=== PATIENT | male | born 1985 | race Caucasian/White ===

== ENCOUNTER 2017-01-15 15:03 | Emergency (ER) | payer OTHER ==
--- NOTE | 2017-01-15 15:37 | ED ORDER SUMMARY ---
..... Patient: SAMANTHA NAYLOR OrderSheet [facility] VisitID: [id number] [address] [place] [address] 31y, M Registration Date/Time: 01/15/2017 ORDER SHEET Weight: 86.1 kg (stated) Allergies: No Known Drug Allergy GENERAL ORDERS: - (LIST OF DENTAL RESOURCES PLEASE) (15:35 01/15/2017 Chris DEJESUS) (15:38 [place] [address]) MEDICATION ORDERS: IV FLUIDS: ORDER SHEET NOTES: [Electronically signed by Tori Beaver R.N. (15:57 01/15/2017)] [Electronically signed by Williams De Luna MD (12:34 01/16/2017)] [Electronically locked/signed by Tori Beaver R.N. (15:57 01/15/2017)]
--- NOTE | 2017-01-15 15:37 | ED CLINICAL REPORT ---
Clinical Report - Physicians/Mid Levels [facility] [address] [place] [address] 01/15/2017 15:06 Patient: SAMANTHA NAYLOR Time Seen: 15:11; initial patient contact. Arrived- By private vehicle. Historian- patient. HISTORY OF PRESENT ILLNESS Chief Complaint: DENTAL PAIN. This started yesterday and is still present and worsening. It was gradual in onset. The patient has had severe toothache (right lower molar). No swollen jaw or face. He has had jaw pain. Similar symptoms previously: Several times. REVIEW OF SYSTEMS No fever. He has had a cough. He has had mild difficulty breathing (wheezing). PAST HISTORY PCP: [facility] PROBLEMS: Hypertension. Asthma. Bronchitis. SOCIAL HISTORY Current every day smoker. ADDITIONAL NOTES The nursing notes have been reviewed. PHYSICAL EXAM Vital Signs: 01/15/2017 15:44 BP: 125/90. HR: 87. RR: 16. O2 saturation: 100%. Temp: 97.7 F. Pain level now: 10/26. 01/15/2017 15:13 BP: 134/84. HR: 104. RR: 18. O2 saturation: 100%. Temp: 97.7 F. Appearance: Alert. Patient in moderate distress. ENT: Severe, extensive dental decay (lower right first molar and second molar). Pharynx normal. Uvula midline. Neck: Trachea midline. No adenopathy. Respiratory: No respiratory distress. Expiratory moderate bilateral wheezes present. PROGRESS AND PROCEDURES Dental Nerve Block: Inferior Alveolar Block. Procedure performed on the right side. Landmarks were identified. Topical anesthetic applied. Total volume of 2 mL 0.5% Marcaine infiltrated using a 27-gauge needle. No complications encountered. Good anesthesia achieved. Procedure repeated on opposite side. Course of Care: 15:36 01/15/17. Pain was 9 after block 11/26. Disposition: Discharged. Condition: good. CLINICAL IMPRESSION Dental pain. INSTRUCTIONS (BECOME A NON SMOKER KEEP YOUR [facility]). Prescription Medications: Hydrocodone/APAP 5mg / 325mg: every 4 hours as needed for pain. Dispense fifteen (15). No refill. Amoxicillin 500 mg tablets: Take 1 orally every 8 hours for 10 days. Dispense thirty (30). No refills. (Electronically signed by Williams De Luna MD 01/16/2017 12:34)
--- NOTE | 2017-01-15 15:37 | ED CLINICAL REPORT ---
Clinical Report - Physicians/Mid Levels [facility] [address] [place] [address] 01/15/2017 15:06 Patient: SAMANTHA NAYLOR Time Seen: 15:11; initial patient contact. Arrived- By private vehicle. Historian- patient. HISTORY OF PRESENT ILLNESS Chief Complaint: DENTAL PAIN. This started yesterday and is still present and worsening. It was gradual in onset. The patient has had severe toothache (right lower molar). No swollen jaw or face. He has had jaw pain. Similar symptoms previously: Several times. REVIEW OF SYSTEMS No fever. He has had a cough. He has had mild difficulty breathing (wheezing). PA[facility] HISTORY [facility] PROBLEMS: Hypertension. Asthma. Bronchitis. SOCIAL HISTORY Current every day smoker. ADDITIONAL NOTES The nursing notes have been reviewed. PHYSICAL EXAM Vital Signs: 01/15/2017 15:44 BP: 125/90. HR: 87. RR: 16. O2 saturation: 100%. Temp: 97.7 F. Pain level now: 10/26. 01/15/2017 15:13 BP: 134/84. HR: 104. RR: 18. O2 saturation: 100%. Temp: 97.7 F. Appearance: Alert. Patient in moderate distress. ENT: Severe, extensive dental decay (lower right first molar and second molar). Pharynx normal. Uvula midline. Neck: Trachea midline. No adenopathy. Respiratory: No respiratory distress. Expiratory moderate bilateral wheezes present. PROGRESS AND PROCEDURES Dental Nerve Block: Inferior Alveolar Block. Procedure performed on the right side. Landmarks were identified. Topical anesthetic applied. Total volume of 2 mL 0.5% Marcaine infiltrated using a 27-gauge needle. No complications encountered. Good anesthesia achieved. Procedure repeated on opposite side. Course of Care: 15:36 01/15/17. Pain was 9 after block 11/26. Disposition: Discharged. Condition: good. CLINICAL IMPRESSION Dental pain. INSTRUCTIONS (BECOME A NON SMOKER KEEP YOUR [facility] DENTAL APPOINTMENT). Prescription Medications: Hydrocodone/APAP 5mg / 325mg: every 4 hours as needed for pain. Dispense fifteen (15). No refill. Amoxicillin 500 mg tablets: Take 1 orally every 8 hours for 10 days. Dispense thirty (30). No refills. (Electronically signed by Williams De Luna MD 01/16/2017 12:34)
--- NOTE | 2017-01-15 15:37 | ED ORDER SUMMARY ---
..... Patient: SAMANTHA NAYLOR OrderSheet [facility] VisitID: [id number] [address] [place] [address] 31y, M Registration Date/Time: 01/15/2017 ORDER SHEET Weight: 86.1 kg (stated) Allergies: No Known Drug Allergy GENERAL ORDERS: - (LIST OF DENTAL RESOURCES PLEASE) (15:35 01/15/2017 Chris DEJESUS) (15:38 [place] [address]) MEDICATION ORDERS: IV FLUIDS: ORDER SHEET NOTES: [Electronically signed by Tori Beaver R.N. (15:57 01/15/2017)] [Electronically signed by Williams De Luna MD (12:34 01/16/2017)] [Electronically locked/signed by Tori Beaver R.N. (15:57 01/15/2017)]
--- NOTE | 2017-01-15 15:37 | ED NURSING NOTES ---
Clinical Report - Nurses [facility] [address] [place] [address] 01/15/2017 15:06 [id number] Triage time 15:13. Acuity: LEVEL 5. Chief Complaint: TOOTHACHE. Alert. No acute distress. ISATU COMA SCORE: [place] Coma Scale: 15- eyes open spontaneously (4); best verbal response- oriented x 4 (5); best motor response- obeys commands (6). --15:18 Kelley Núñez R.N. 15:13 01/15/17. BP: 134/84. HR: 104. RR: 18. O2 saturation: 100% on room air. Temp: 97.7 F (oral). --15:18 Kelley Núñez R.N. Weight: 86.1 kg stated. Height/Length: 74 inches Per Patient. BMI: 24.4. --15:15 Kelley Núñez R.N. Medications Zpak , , for respiratory infection (started 4 days ago). --15:14 Kelley Núñez R.N. Ibuprofen Oral. ProAir HFA Inhalation. --15:14 Kelley Núñez R.N. Medication/allergy information source: the patient. --15:18 Kelley Núñez R.N. Allergies No Known Drug Allergy. --15:14 Kelley Núñez R.N. History Arrived by private vehicle. Historian: patient. Unaccompanied. Primary physician (Kike). This started last night. SOCIAL HX: Heavy tobacco smoker- less than 1 pack per day. No alcohol use or drug use. FALL RISK ASSESSMENT: Fall risk assessment completed. No fall risk identified. FUNCTIONAL ASSESSMENT: Functional assessment: no impairments noted. LEARNING NEEDS ASSESSMENT: The learning needs assessment revealed no barriers. --15:18 Kelley Núñez R.N. PROBLEMS: Hypertension. Asthma. Bronchitis. --15:15 Kelley Núñez R.N. ADDITIONAL SURGERIES: no known surgeries. Assessment GENERAL / NEURO / PSYCH: Alert. Oriented X 4. Appears in no acute distress. Patient appears calm and cooperative. RESPIRATORY: Respirations not labored. SKIN: Skin is warm and dry. --15:18 Kelley Núñez R.N. Interventions ID band on patient. To treatment room. --15:18 Kelley Núñez R.N. PHYSICAL ASSESSMENT 15:23 01/15/17. Ambulatory to room. GENERAL / NEURO / PSYCH: Alert. Oriented X 4. Appears in no acute distress. RESPIRATORY: Respirations not labored. SKIN: Skin is warm and dry. --15:23 Kelley Núñez R.N. NURSING PROGRESS NOTES 15:23 01/15/17. Call light placed in reach. Side rails up x 1. Bed placed in lowest position. Brakes of bed on. --15:23 Kelley Núñez R.N. DISPOSITION / DISCHARGE Departure time: 15:46. Condition at departure: improved. The goals identified in the patient's plan of care were met. No learning barriers present. Discharge instructions provided and reviewed with the patient. Patient verbalized understanding. Written instructions provided in Yi. The patient was discharged home. He left the Emergency Department ambulatory and via private vehicle. Patient driving. FALL RISK ASSESSMENT: Fall risk assessment completed. No fall risk identified. --15:47 Tori Beaver R.N. 15:43 01/15/17. BP: 125/90. HR: 87. RR: 16. O2 saturation: 100%. Temp: 97.7 F. Pain level now: 10/26. --15:47 Tori Beaver R.N. Locked/Released at 01/15/2017 15:57 by Tori Beaver R.N.
--- NOTE | 2017-01-16 12:34 | ED MAR SUMMARY ---
..... Medication Administration Record [facility] [address] [place] [id number] Patient: SAMANTHA NAYLOR Visit ID: [id number] 31y, M Weight: 86.1 kg Height/Length: 74 in BMI: 24.4 ALLERGIES: No Known Drug Allergy
--- NOTE | 2017-01-16 12:34 | ED MED RECONCILIATION SUMMARY ---
Patient: SAMANTHA NAYLOR Medication Reconciliation Report [facility] VisitID: [id number] [address] [place] [address] 31y, M Registration Date/Time: 01/15/2017 Weight: 86.1 kg Height/Length: 74 in. BMI: 24.4 ALLERGIES: No Known Drug Allergy The patient's Home Medications are listed below: THE FOLLOWING MEDICATIONS NEED TO BE RECONCILED: Ibuprofen Oral ProAir HFA Inhalation Zpak , for respiratory infection, started 4 days ago The source(s) of the original Home Medication information: patient The following Medications were given to the patient in the Emergency Department: None. The following Medications were prescribed to the patient: Hydrocodone/APAP 5mg / 325mg: every 4 hours as needed for pain. Dispense fifteen (15). No refill. -- Williams De Luna MD Amoxicillin 500 mg tablets: Take 1 orally every 8 hours for 10 days. Dispense thirty (30). No refills. -- Williams De Luna MD
--- NOTE | 2017-01-16 12:34 | ED DISCHARGE INSTRUCTIONS ---
Patient: SAMANTHA NAYLOR General Instructions [facility] VisitID: [id number] [place] [address] 31y, M Registration Date/Time: 01/15/2017 Dental pain. INSTRUCTIONS (BECOME A NON SMOKER KEEP YOUR [facility] DENTAL APPOINTMENT). Prescription Medications: Hydrocodone/APAP 5mg / 325mg: every 4 hours as needed for pain. Dispense fifteen (15). No refill. Amoxicillin 500 mg tablets: Take 1 orally every 8 hours for 10 days. Dispense thirty (30). No refills. ADDITIONAL INFORMATION Dental Pain A crack or cavity in the tooth, which exposes the sensitive inner area of the tooth can cause tooth pain. An infection in the gum or the root of the tooth can cause pain and swelling. The pain is often made worse by drinking hot or cold fluids, or biting on hard foods. Pain may spread from the tooth to the ear or jaw on the same side. Home Care: Avoid hot and cold foods and liquids since your tooth may be sensitive to temperature changes. If your tooth is chipped or cracked, or if there is a large open cavity, apply OIL OF CLOVES (available [id number] in drug stores) directly to the tooth to reduce pain. Some pharmacies carry an punl-wxs-kmjyjwn "toothache kit." This contains a paste, which can be applied over the exposed tooth to decrease sensitivity. A cold pack on your jaw over the sore area may help reduce pain. You may use acetaminophen (Tylenol) or ibuprofen (Motrin, Advil) to control pain, unless another medicine was prescribed. [ NOTE: If you have chronic liver or kidney disease or ever had a stomach ulcer or GI bleeding, talk with your doctor before using these medicines.] If you have signs of an infection, an antibiotic will be given. Take it as directed. Follow-Up as directed with a dentist. Your pain may go away with the treatment given. However, only a dentist can fully evaluate and treat the cause and prevent the pain from coming back again. TOOTHACHE IS A SIGN OF DISEASE IN YOUR TOOTH AND SHOULD BE EXAMINED AND TREATED BY A DENTIST. Get Prompt Medical Attention if any of the following occur: Your face becomes swollen or red Pain worsens or spreads to the neck Fever over 100.4 F (38.0 C) Unusual drowsiness; headache or stiff neck; weakness or fainting Pus drains from the tooth Difficulty swallowing or breathing Hydrocodone Bitartrate, Acetaminophen Oral tablet What is this medicine? ACETAMINOPHEN; HYDROCODONE (a set a PRIYA marjan fen; verna droe KOE done) is a pain reliever. It is used to treat mild to moderate pain. How should I use this medicine? Take this medicine by mouth. Swallow it with a full glass of water. Follow the directions on the prescription label. If the medicine upsets your stomach, take the medicine with food or milk. Do not take more than you are told to take. Talk to your library assistant regarding the use of this medicine in children. This medicine is not approved for use in children. What side effects may I notice from receiving this medicine? Side effects that you should report to your doctor or health wild animal caretaker as soon as possible: allergic reactions like skin rash, itching or hives, swelling of the face, lips, or tongue breathing problems confusion feeling faint or lightheaded, falls stomach pain yellowing of the eyes or skin Side effects that usually do not require medical attention (report to your doctor or health wild animal caretaker if they continue or are bothersome): nausea, vomiting stomach upset What may interact with this medicine? alcohol antihistamines isoniazid medicines for depression, anxiety, or psychotic disturbances medicines for sleep muscle relaxants naltrexone narcotic medicines (opiates) for pain phenobarbital ritonavir tramadol What if I miss a dose? If you miss a dose, take it as soon as you can. If it is almost time for your next dose, take only that dose. Do not take double or extra doses. Where should I keep my medicine? Keep out of the reach of children. This medicine can be abused. Keep your medicine in a safe place to protect it from theft. Do not share this medicine with anyone. Selling or giving away this medicine is dangerous and against the law. Store at room temperature between 15 and 30 degrees C (59 and 86 degrees F). Protect from light. Keep container tightly closed. Throw away any unused medicine after the expiration date. Discard unused medicine and used packaging carefully. Pets and children can be harmed if they find used or lost packages. What should I tell my health care provider before I take this medicine? They need to know if you have any of these conditions: brain tumor Crohn's disease, inflammatory bowel disease, or ulcerative colitis drink more than 3 alcohol-containing drinks per day drug abuse or addiction head injury heart or circulation problems kidney disease or problems going to the bathroom liver disease lung disease, asthma, or breathing problems an unusual or allergic reaction to acetaminophen, hydrocodone, other opioid analgesics, other medicines, foods, dyes, or preservatives or trying to get breast-feeding What should I watch for while using this medicine? Tell your doctor or health wild animal caretaker if your pain does not go away, if it gets worse, or if you have new or a different type of pain. You may develop tolerance to the medicine. Tolerance means that you will need a higher dose of the medicine for pain relief. Tolerance is normal and is expected if you take the medicine for a long time. Do not suddenly stop taking your medicine because you may develop a severe reaction. Your body becomes used to the medicine. This does NOT mean you are addicted. Addiction is a behavior related to getting and using a drug for a non-medical reason. If you have pain, you have a medical reason to take pain medicine. Your doctor will tell you how much medicine to take. If your doctor wants you to stop the medicine, the dose will be slowly lowered over time to avoid any side effects. You may get drowsy or dizzy when you first start taking the medicine or change doses. Do not drive, use machinery, or do anything that may be dangerous until you know how the medicine affects you. Stand or sit up slowly. There are different types of narcotic medicines (opiates) for pain. If you take more than one type at the same time, you may have more side effects. Give your health care provider a list of all medicines you use. Your doctor will tell you how much medicine to take. Do not take more medicine than directed. Call emergency for help if you have problems breathing. The medicine will cause constipation. Try to have a bowel movement at least every 2 to 3 days. If you do not have a bowel movement for 3 days, call your doctor or health wild animal caretaker. Too much acetaminophen can be very dangerous. Do not take Tylenol (acetaminophen) or medicines that contain acetaminophen with this medicine. Many non-prescription medicines contain acetaminophen. Always read the labels carefully. You have been given the following additional information: Dental Pain Hydrocodone Bitartrate, Acetaminophen Oral tablet (Electronically signed by Williams De Luna MD 01/16/2017 12:34)
--- NOTE | 2017-01-16 12:34 | ED MAR SUMMARY ---
..... Medication Administration Record [facility] [address] [place] [id number] Patient: SAMANTHA NAYLOR Visit ID: [id number] 31y, M Weight: 86.1 kg Height/Length: 74 in BMI: 24.4 ALLERGIES: No Known Drug Allergy
--- NOTE | 2017-01-16 12:34 | ED DISCHARGE INSTRUCTIONS ---
Patient: SAMANTHA NAYLOR General Instructions [facility] VisitID: [id number] [place] [address] 31y, M Registration Date/Time: 01/15/2017 Dental pain. INSTRUCTIONS (BECOME A NON SMOKER [facility]). Prescription Medications: Hydrocodone/APAP 5mg / 325mg: every 4 hours as needed for pain. Dispense fifteen (15). No refill. Amoxicillin 500 mg tablets: Take 1 orally every 8 hours for 10 days. Dispense thirty (30). No refills. ADDITIONAL INFORMATION Dental Pain A crack or cavity in the tooth, which exposes the sensitive inner area of the tooth can cause tooth pain. An infection in the gum or the root of the tooth can cause pain and swelling. The pain is often made worse by drinking hot or cold fluids, or biting on hard foods. Pain may spread from the tooth to the ear or jaw on the same side. Home Care: Avoid hot and cold foods and liquids since your tooth may be sensitive to temperature changes. If your tooth is chipped or cracked, or if there is a large open cavity, apply OIL OF CLOVES (available blbt-mmd-muxrewy in drug stores) directly to the tooth to reduce pain. Some pharmacies carry an aqaw-yal-jplyopc "toothache kit." This contains a paste, which can be applied over the exposed tooth to decrease sensitivity. A cold pack on your jaw over the sore area may help reduce pain. You may use acetaminophen (Tylenol) or ibuprofen (Motrin, Advil) to control pain, unless another medicine was prescribed. [ NOTE: If you have chronic liver or kidney disease or ever had a stomach ulcer or GI bleeding, talk with your doctor before using these medicines.] If you have signs of an infection, an antibiotic will be given. Take it as directed. Follow-Up as directed with a dentist. Your pain may go away with the treatment given. However, only a dentist can fully evaluate and treat the cause and prevent the pain from coming back again. TOOTHACHE IS A SIGN OF DISEASE IN YOUR TOOTH AND SHOULD BE EXAMINED AND TREATED BY A DENTIST. Get Prompt Medical Attention if any of the following occur: Your face becomes swollen or red Pain worsens or spreads to the neck Fever over 100.4 F (38.0 C) Unusual drowsiness; headache or stiff neck; weakness or fainting Pus drains from the tooth Difficulty swallowing or breathing Hydrocodone Bitartrate, Acetaminophen Oral tablet What is this medicine? ACETAMINOPHEN; HYDROCODONE (a set a PRIYA marjan fen; verna droe KOE done) is a pain reliever. It is used to treat mild to moderate pain. How should I use this medicine? Take this medicine by mouth. Swallow it with a full glass of water. Follow the directions on the prescription label. If the medicine upsets your stomach, take the medicine with food or milk. Do not take more than you are told to take. Talk to your event decorator and designer regarding the use of this medicine in children. This medicine is not approved for use in children. What side effects may I notice from receiving this medicine? Side effects that you should report to your doctor or health md do resident urgent care as soon as possible: allergic reactions like skin rash, itching or hives, swelling of the face, lips, or tongue breathing problems confusion feeling faint or lightheaded, falls stomach pain yellowing of the eyes or skin Side effects that usually do not require medical attention (report to your doctor or health md do resident urgent care if they continue or are bothersome): nausea, vomiting stomach upset What may interact with this medicine? alcohol antihistamines isoniazid medicines for depression, anxiety, or psychotic disturbances medicines for sleep muscle relaxants naltrexone narcotic medicines (opiates) for pain phenobarbital ritonavir tramadol What if I miss a dose? If you miss a dose, take it as soon as you can. If it is almost time for your next dose, take only that dose. Do not take double or extra doses. Where should I keep my medicine? Keep out of the reach of children. This medicine can be abused. Keep your medicine in a safe place to protect it from theft. Do not share this medicine with anyone. Selling or giving away this medicine is dangerous and against the law. Store at room temperature between 15 and 30 degrees C (59 and 86 degrees F). Protect from light. Keep container tightly closed. Throw away any unused medicine after the expiration date. Discard unused medicine and used packaging carefully. Pets and children can be harmed if they find used or lost packages. What should I tell my health care provider before I take this medicine? They need to know if you have any of these conditions: brain tumor Crohn's disease, inflammatory bowel disease, or ulcerative colitis drink more than 3 alcohol-containing drinks per day drug abuse or addiction head injury heart or circulation problems kidney disease or problems going to the bathroom liver disease lung disease, asthma, or breathing problems an unusual or allergic reaction to acetaminophen, hydrocodone, other opioid analgesics, other medicines, foods, dyes, or preservatives or trying to get breast-feeding What should I watch for while using this medicine? Tell your doctor or health md do resident urgent care if your pain does not go away, if it gets worse, or if you have new or a different type of pain. You may develop tolerance to the medicine. Tolerance means that you will need a higher dose of the medicine for pain relief. Tolerance is normal and is expected if you take the medicine for a long time. Do not suddenly stop taking your medicine because you may develop a severe reaction. Your body becomes used to the medicine. This does NOT mean you are addicted. Addiction is a behavior related to getting and using a drug for a non-medical reason. If you have pain, you have a medical reason to take pain medicine. Your doctor will tell you how much medicine to take. If your doctor wants you to stop the medicine, the dose will be slowly lowered over time to avoid any side effects. You may get drowsy or dizzy when you first start taking the medicine or change doses. Do not drive, use machinery, or do anything that may be dangerous until you know how the medicine affects you. Stand or sit up slowly. There are different types of narcotic medicines (opiates) for pain. If you take more than one type at the same time, you may have more side effects. Give your health care provider a list of all medicines you use. Your doctor will tell you how much medicine to take. Do not take more medicine than directed. Call emergency for help if you have problems breathing. The medicine will cause constipation. Try to have a bowel movement at least every 2 to 3 days. If you do not have a bowel movement for 3 days, call your doctor or health md do resident urgent care. Too much acetaminophen can be very dangerous. Do not take Tylenol (acetaminophen) or medicines that contain acetaminophen with this medicine. Many non-prescription medicines contain acetaminophen. Always read the labels carefully. You have been given the following additional information: Dental Pain Hydrocodone Bitartrate, Acetaminophen Oral tablet (Electronically signed by Williams De Luna MD 01/16/2017 12:34)
--- NOTE | 2017-01-16 12:34 | ED MED RECONCILIATION SUMMARY ---
Patient: SAMANTHA NAYLOR Medication Reconciliation Report [facility] VisitID: [id number] [address] [place] [address] 31y, M Registration Date/Time: 01/15/2017 Weight: 86.1 kg Height/Length: 74 in. BMI: 24.4 ALLERGIES: No Known Drug Allergy The patient's Home Medications are listed below: THE FOLLOWING MEDICATIONS NEED TO BE RECONCILED: Ibuprofen Oral ProAir HFA Inhalation Zpak , for respiratory infection, started 4 days ago The source(s) of the original Home Medication information: patient The following Medications were given to the patient in the Emergency Department: None. The following Medications were prescribed to the patient: Hydrocodone/APAP 5mg / 325mg: every 4 hours as needed for pain. Dispense fifteen (15). No refill. -- Williams De Luna MD Amoxicillin 500 mg tablets: Take 1 orally every 8 hours for 10 days. Dispense thirty (30). No refills. -- Williams De Luna MD
== END 2017-01-15 15:46 | disposition home or self-care (01) ==
LOC: ED SRH 15:03
DX: K08.89 Other specified disorders of teeth and supporting structures (principal); I10 Essential (primary) hypertension; F17.200 Nicotine dependence, unspecified, uncomplicated

== ENCOUNTER 2017-02-25 18:08 | Emergency (ER) | payer OTHER ==
--- NOTE | 2017-02-25 19:08 | ED CLINICAL REPORT ---
Clinical Report - Physicians/Mid Levels [facility] [address] [place] [address] 02/25/2017 18:08 Patient: SAMANTHA NAYLOR Time Seen: 21:24 Feb 25 2017. Arrived- By private vehicle. Historian- patient. HISTORY OF PRESENT ILLNESS Chief Complaint: DENTAL PAIN. This started just prior to arrival and is still present. Pain described as moderate. The patient has had toothache and jaw pain. (Pt with dental pain over lst 2 days, pain worse on left side. h/o similar. Recent abx. Recent tooth extraction on r. side. Reports prior h/o drug use. Denies diff swallowing. Denies cough.). REVIEW OF SYSTEMS No fever, cough, difficulty breathing, diarrhea or joint pain. All systems otherwise negative, except as recorded above. PAST HISTORY Problems: Dental Pain. Hypertension. Asthma. Bronchitis. Immunizations. Additional Surgeries: no known surgeries. Medications: None. Allergies: No Known Drug Allergy. SOCIAL HISTORY Smoker- current status unknown. No alcohol use or drug use. ADDITIONAL NOTES The nursing notes have been reviewed. PHYSICAL EXAM Vital Signs: 02/25/2017 18:41 BP: 143/94. HR: 79. RR: 16. O2 saturation: 100%. Temp: 98.3 F. Pain level now: 6/10. Appearance: Alert. ENT: Dental tenderness. Ears normal. Nose normal. Gums normal. Uvula midline. (decay of mulitple teeth, erythema, mild lateral facial swelling on left, no trismus, uvula midline, no palpable mass/a bscess). Neck: Trachea midline. No adenopathy. CVS: Normal heart rate and rhythm. Heart sounds normal. Respiratory: No respiratory distress. Breath sounds normal. Abdomen: Soft. No organomegaly. Skin: Normal skin color. Neuro: Oriented X 3. No motor deficit. PROGRESS AND PROCEDURES Course of Care: Pt in the er with uvula midline, no trismus, no signs of dental abscess for I/D. Facial lateral swelling over last 24 hours. No signs of ludwigs angina. Pt stable to f/u outpatient. Patient is stable. Patient/family counseled. Disposition: Discharged. Condition: good. CLINICAL IMPRESSION Dental abscess. INSTRUCTIONS Drink plenty of fluids. Prescription Medications: Amoxicillin 500 mg tablets: take 1 orally every 8 hours for 10 days. No refills. Ibuprofen 800 mg tablets: take 1 tablet orally every 8 hours for 5 days, as needed for pain. Dispense fifteen (15). No refill. Follow-up: Follow up with a dentist. Understanding of the discharge instructions verbalized. (Electronically signed by Heidi Jones P.A.-C 02/25/2017 21:27)
--- NOTE | 2017-02-25 19:08 | ED CLINICAL REPORT ---
Clinical Report - Physicians/Mid Levels [facility] [address] [place] [address] 02/25/2017 18:08 Patient: SAMANTHA NAYLOR Time Seen: 21:24 Feb 25 2017. Arrived- By private vehicle. Historian- patient. HISTORY OF PRESENT ILLNESS Chief Complaint: DENTAL PAIN. This started just prior to arrival and is still present. Pain described as moderate. The patient has had toothache and jaw pain. (Pt with dental pain over lst 2 days, pain worse on left side. h/o similar. Recent abx. Recent tooth extraction on r. side. Reports prior h/o drug use. Denies diff swallowing. Denies cough.). REVIEW OF SYSTEMS No fever, cough, difficulty breathing, diarrhea or joint pain. All systems otherwise negative, except as recorded above. PAST HISTORY Problems: Dental Pain. Hypertension. Asthma. Bronchitis. Immunizations. Additional Surgeries: no known surgeries. Medications: None. Allergies: No Known Drug Allergy. SOCIAL HISTORY Smoker- current status unknown. No alcohol use or drug use. ADDITIONAL NOTES The nursing notes have been reviewed. PHYSICAL EXAM Vital Signs: 02/25/2017 18:41 BP: 143/94. HR: 79. RR: 16. O2 saturation: 100%. Temp: 98.3 F. Pain level now: 6/10. Appearance: Alert. ENT: Dental tenderness. Ears normal. Nose normal. Gums normal. Uvula midline. (decay of mulitple teeth, erythema, mild lateral facial swelling on left, no trismus, uvula midline, no palpable mass/a bscess). Neck: Trachea midline. No adenopathy. CVS: Normal heart rate and rhythm. Heart sounds normal. Respiratory: No respiratory distress. Breath sounds normal. Abdomen: Soft. No organomegaly. Skin: Normal skin color. Neuro: Oriented X 3. No motor deficit. PROGRESS AND PROCEDURES Course of Care: Pt in the er with uvula midline, no trismus, no signs of dental abscess for I/D. Facial lateral swelling over last 24 hours. No signs of ludwigs angina. Pt stable to f/u outpatient. Patient is stable. Patient/family counseled. Disposition: Discharged. Condition: good. CLINICAL IMPRESSION Dental abscess. INSTRUCTIONS Drink plenty of fluids. Prescription Medications: Amoxicillin 500 mg tablets: take 1 orally every 8 hours for 10 days. No refills. Ibuprofen 800 mg tablets: take 1 tablet orally every 8 hours for 5 days, as needed for pain. Dispense fifteen (15). No refill. Follow-up: Follow up with a dentist. Understanding of the discharge instructions verbalized. (Electronically signed by Heidi Jones P.A.-C 02/25/2017 21:27)
--- NOTE | 2017-02-25 19:09 | ED NURSING NOTES ---
Clinical Report - Nurses [facility] [place] [address] 02/25/2017 18:08 Patient: SAMANTHA NAYLOR TRIAGE Triage time 18:41. Acuity: LEVEL 4. Chief Complaint: JAW PAIN and SWELLING OF JAW / FACE. Alert. No acute distress. ISATU COMA SCORE: [place] Coma Scale: 15- eyes open spontaneously (4); best verbal response- oriented x 4 (5); best motor response- obeys commands (6). --18:46 Kelley Núñez R.N. 18:41 02/25/17. BP: 143/94. HR: 79. RR: 16. O2 saturation: 100% on room air. Temp: 98.3 F (oral). Pain level now: 01/26. --18:46 Kelley Núñez R.N. Weight: 86.1 kg stated. Height/Length: 74 inches Per Patient. BMI: 24.4. --18:45 Kelley Núñez R.N. Medications None. --18:42 Kelley Núñez R.N. Medication/allergy information source: the patient. --18:46 Kelley Núñez R.N. Allergies No Known Drug Allergy. --18:42 Kelley Núñez R.N. History Arrived by private vehicle. Historian: patient. Unaccompanied. Primary physician (Kike). This started yesterday. SOCIAL HX: Heavy tobacco smoker- less than 1 pack per day. No alcohol use or drug use. FALL RISK ASSESSMENT: Fall risk assessment completed. No fall risk identified. FUNCTIONAL ASSESSMENT: Functional assessment: no impairments noted. LEARNING NEEDS ASSESSMENT: The learning needs assessment revealed no barriers. --18:46 Kelley Núñez R.N. PROBLEMS: Dental Pain. Hypertension. Asthma. Bronchitis. Immunizations. --18:43 Kelley Núñez R.N. ADDITIONAL SURGERIES: no known surgeries. Assessment GENERAL / NEURO / PSYCH: The patient is awake and alert, is oriented and cooperative and appears uncomfortable. He has good eye contact. RESPIRATORY: Respirations not labored. SKIN: Skin is warm and dry. --18:46 Kelley Núñez R.N. Interventions <<STRICKEN ENTRY-- ID band on patient. To treatment room. --18:46 Kelley Núñez R.N. --END STRIKE>> Correction --18:47 Kelley Núñez R.N. ID band on patient. To waiting room. --18:47 Kelley Núñez R.N. DISPOSITION / DISCHARGE 19:18 02/25/17. BP: deferred. HR: deferred. RR: 15 (regular and unlabored). O2 saturation: deferred. Temp: deferred. Munoz-Villagomez pain scale: 11/26. --19:19 Constance Kim R.N. Condition at departure: stable. No learning barriers present. Reviewed medication(s) side effects, precautions, dosing and course information. Prescription(s) given to the patient. Patient verbalized understanding. Written instructions provided in Peruvian. The patient was discharged home. He left the Emergency Department ambulatory and via private vehicle. --19:20 Constance Kim R.N. 19:13 02/25/2017 Hydrocodone-APAP (Hydrocodone-Acetaminophen) PO 5/325 mg Tablets 1 tab given. Allergies verified, confirmed 5 rights and sedative warning given to the patient. --19:20 Constance Kim R.N. 19:13 02/25/2017 Amoxicillin PO Capsules 500 mg given. Allergies verified and confirmed 5 rights. --19:20 Constance Kim R.N. Locked/Released at 02/25/2017 19:20 by Constance Kim R.N.
--- NOTE | 2017-02-25 19:09 | ED NURSING NOTES ---
Clinical Report - Nurses [facility] [place] [address] 02/25/2017 18:08 Patient: SAMANTHA NAYLOR TRIAGE Triage time 18:41. Acuity: LEVEL 4. Chief Complaint: JAW PAIN and SWELLING OF JAW / FACE. Alert. No acute distress. ISATU COMA SCORE: [place] Coma Scale: 15- eyes open spontaneously (4); best verbal response- oriented x 4 (5); best motor response- obeys commands (6). --18:46 Kelley Núñez R.N. 18:41 02/25/17. BP: 143/94. HR: 79. RR: 16. O2 saturation: 100% on room air. Temp: 98.3 F (oral). Pain level now: 01/26. --18:46 Kelley Núñez R.N. Weight: 86.1 kg stated. Height/Length: 74 inches Per Patient. BMI: 24.4. --18:45 Kelley Núñez R.N. Medications None. --18:42 Kelley Núñez R.N. Medication/allergy information source: the patient. --18:46 Kelley Núñez R.N. Allergies No Known Drug Allergy. --18:42 Kelley Núñez R.N. History Arrived by private vehicle. Historian: patient. Unaccompanied. Primary physician (Kike). This started yesterday. SOCIAL HX: Heavy tobacco smoker- less than 1 pack per day. No alcohol use or drug use. FALL RISK ASSESSMENT: Fall risk assessment completed. No fall risk identified. FUNCTIONAL ASSESSMENT: Functional assessment: no impairments noted. LEARNING NEEDS ASSESSMENT: The learning needs assessment revealed no barriers. --18:46 Kelley Núñez R.N. PROBLEMS: Dental Pain. Hypertension. Asthma. Bronchitis. Immunizations. --18:43 Kelley Núñez R.N. ADDITIONAL SURGERIES: no known surgeries. Assessment GENERAL / NEURO / PSYCH: The patient is awake and alert, is oriented and cooperative and appears uncomfortable. He has good eye contact. RESPIRATORY: Respirations not labored. SKIN: Skin is warm and dry. --18:46 Kelley Núñez R.N. Interventions <<STRICKEN ENTRY-- ID band on patient. To treatment room. --18:46 Kelley Núñez R.N. --END STRIKE>> Correction --18:47 Kelley Núñez R.N. ID band on patient. To waiting room. --18:47 Kelley Núñez R.N. DISPOSITION / DISCHARGE 19:18 02/25/17. BP: deferred. HR: deferred. RR: 15 (regular and unlabored). O2 saturation: deferred. Temp: deferred. Munoz-Villagomez pain scale: 11/26. --19:19 Constance Kim R.N. Condition at departure: stable. No learning barriers present. Reviewed medication(s) side effects, precautions, dosing and course information. Prescription(s) given to the patient. Patient verbalized understanding. Written instructions provided in Ghanaian. The patient was discharged home. He left the Emergency Department ambulatory and via private vehicle. --19:20 Constance Kim R.N. 19:13 02/25/2017 Hydrocodone-APAP (Hydrocodone-Acetaminophen) PO 5/325 mg Tablets 1 tab given. Allergies verified, confirmed 5 rights and sedative warning given to the patient. --19:20 Constance Kim R.N. 19:13 02/25/2017 Amoxicillin PO Capsules 500 mg given. Allergies verified and confirmed 5 rights. --19:20 Constance Kim R.N. Locked/Released at 02/25/2017 19:20 by Constance Kim R.N.
--- NOTE | 2017-02-25 19:09 | ED ORDER SUMMARY ---
..... Patient: SAMANTHA NAYLOR OrderSheet [facility] VisitID: [id number] [address] [place] [address] 31y, M Registration Date/Time: 02/25/2017 ORDER SHEET Weight: 86.1 kg (stated) Allergies: No Known Drug Allergy GENERAL ORDERS: MEDICATION ORDERS: Hydrocodone-APAP PO 5/325 mg (NOW, HIGH ALERT MEDICATION) (19:02/25/2017 Shelton P.A.-C) (Ack 19:11 Idalia R.N.) (19:20 Idalia R.N.) Amoxicillin PO 500 mg (NOW) (19:02/25/2017 Shelton P.A.-C) (Ack 19:11 ALBERTAollier R.N.) (19:20 ALBERTAollier R.N.) IV FLUIDS: ORDER SHEET NOTES: [Electronically signed by Constance Kim R.N. (19:20 02/25/2017)] [Electronically signed by Heidi JonesAEliezer-Radha (21:27 02/25/2017)] [Electronically locked/signed by Constance Kim R.N. (19:20 02/25/2017)]
--- NOTE | 2017-02-25 19:09 | ED ORDER SUMMARY ---
..... Patient: SAMANTHA NAYLOR OrderSheet [facility] VisitID: [id number] [address] [place] [address] 31y, M Registration Date/Time: 02/25/2017 ORDER SHEET Weight: 86.1 kg (stated) Allergies: No Known Drug Allergy GENERAL ORDERS: MEDICATION ORDERS: Hydrocodone-APAP PO 5/325 mg (NOW, HIGH ALERT MEDICATION) (19:02/25/2017 Shelton P.A.-C) (Ack 19:11 Idalia R.N.) (19:20 Idalia R.N.) Amoxicillin PO 500 mg (NOW) (19:02/25/2017 Shelton P.A.-C) (Ack 19:11 ALBERTAollier R.N.) (19:20 ALBERTAollier R.N.) IV FLUIDS: ORDER SHEET NOTES: [Electronically signed by Constance Kim R.N. (19:20 02/25/2017)] [Electronically signed by Heidi JonesAEliezer-Radha (21:27 02/25/2017)] [Electronically locked/signed by Constance Kim R.N. (19:20 02/25/2017)]
--- NOTE | 2017-02-25 21:27 | ED MAR SUMMARY ---
..... Medication Administration Record [facility] [address] [place] [address] Patient: SAMANTHA NAYLOR Visit ID: [id number] 31y, M Weight: 86.1 kg Height/Length: 74 in BMI: 24.4 ALLERGIES: No Known Drug Allergy Given 19:02/25/2017 Constance Kim REliezerNEliezer Medication Administered: HYDROCODONE-APAP [PO] (HYDROCODONE-ACETAMINOPHEN), Dose: 1 tab 5/325 mg Tablets PO. Medication Ordered: Hydrocodone-APAP PO 5/325 mg (NOW, HIGH ALERT MEDICATION). Given 19:02/25/2017 Constance Kim, R.N. Medication Administered: AMOXICILLIN [PO], Dose: 500 mg Capsules PO. Medication Ordered: Amoxicillin PO 500 mg (NOW).
--- NOTE | 2017-02-25 21:27 | ED MAR SUMMARY ---
..... Medication Administration Record [facility] [address] [place] [address] Patient: SAMANTHA NAYLOR Visit ID: [id number] 31y, M Weight: 86.1 kg Height/Length: 74 in BMI: 24.4 ALLERGIES: No Known Drug Allergy Given 19:02/25/2017 Constance Kim REliezerNEliezer Medication Administered: HYDROCODONE-APAP [PO] (HYDROCODONE-ACETAMINOPHEN), Dose: 1 tab 5/325 mg Tablets PO. Medication Ordered: Hydrocodone-APAP PO 5/325 mg (NOW, HIGH ALERT MEDICATION). Given 19:02/25/2017 Constance Kim, R.N. Medication Administered: AMOXICILLIN [PO], Dose: 500 mg Capsules PO. Medication Ordered: Amoxicillin PO 500 mg (NOW).
--- NOTE | 2017-02-25 21:27 | ED DISCHARGE INSTRUCTIONS ---
Patient: SAMANTHA NAYLOR General Instructions [facility] VisitID: [id number] [place] [address] 31y, M Registration Date/Time: 02/25/2017 Dental abscess. INSTRUCTIONS Drink plenty of fluids. Prescription Medications: Amoxicillin 500 mg tablets: take 1 orally every 8 hours for 10 days. No refills. Ibuprofen 800 mg tablets: take 1 tablet orally every 8 hours for 5 days, as needed for pain. Dispense fifteen (15). No refill. Follow-up: Follow up with a dentist. Understanding of the discharge instructions verbalized. ADDITIONAL INFORMATION Dental Abscess A dental abscess is an infection of the tooth socket. It often starts with a crack or cavity in the tooth. A pocket of pus forms between the tooth and the bone. The infection causes pain and swelling of the gum, cheek or jaw. The pain is often made worse by drinking hot or cold fluids, or biting on hard foods. Pain may be felt in the facial sinus or in the ear. A severe infection can interfere with swallowing and breathing. In the emergency department or clinic, you will be started on an antibiotic. However, final treatment requires drainage of the pus. This can be done by removing the tooth or performing a root canal. A root canal is done by an oral surgeon and involves drilling an opening in the tooth to drain the pus. After the infection has healed, a crown is placed over the tooth. Home care The following guidelines will help you care for your abscess at home: Avoid hot and cold foods and liquids since your tooth may be sensitive to temperature changes. If your tooth is chipped or cracked, or if there is a large open cavity, applyoil of cloves(available yefd-ocf-kvsqkak in drug stores) directly to the tooth to reduce pain. Some pharmacies carry an zgvk-fzq-ilepwws "toothache kit". This contains oil of cloves and a paste, which can be applied over the exposed tooth to decrease sensitivity. Apply an ice pack (ice cubes in a plastic bag, wrapped in a towel) over the injured area for 20 minutes every 12 hours the first day for pain relief. Continue this 34 times a day until the pain and swelling goes away. You may use acetaminophen or ibuprofen to control pain, unless another medicine was prescribed. If you have chronic liver or kidney disease or ever had a stomach ulcer or GI bleeding, talk with your doctor before using these medicines. An antibiotic will be prescribed. Take it as directed until completed, even if you are feeling better sooner. Follow-up care Follow up as directed with a dentist or oral surgeon. Even though your pain may improve with the treatment given today, only a dentist or oral surgeon can provide full treatment for this problem. When to seek medical care Get prompt medical attention or contact your doctor if any of the following occur: Your face or eyelid becomes swollen or red Pain worsens or spreads to the neck Fever over 100.4F (38.0C) Unusual drowsiness; headache or stiff neck; weakness, or fainting Pus drains from the gum or tooth Difficulty talking, swallowing or breathing Unable to open your mouth wide Amoxicillin Trihydrate Oral tablet What is this medicine? AMOXICILLIN (a mox i LILY in) is a penicillin antibiotic. It is used to treat certain kinds of bacterial infections. It will not work for colds, flu, or other viral infections. How should I use this medicine? Take this medicine by mouth with a glass of water. Follow the directions on your prescription label. You may take this medicine with food or on an empty stomach. Take your medicine at regular intervals. Do not take your medicine more often than directed. Take all of your medicine as directed even if you think your are better. Do not skip doses or stop your medicine early. Talk to your laborer shaft sinking regarding the use of this medicine in children. While this drug may be prescribed for selected conditions, precautions do apply. What side effects may I notice from receiving this medicine? Side effects that you should report to your doctor or health child care leader as soon as possible: allergic reactions like skin rash, itching or hives, swelling of the face, lips, or tongue breathing problems dark urine redness, blistering, peeling or loosening of the skin, including inside the mouth seizures severe or watery diarrhea trouble passing urine or change in the amount of urine unusual bleeding or bruising unusually weak or tired yellowing of the eyes or skin Side effects that usually do not require medical attention (report to your doctor or health child care leader if they continue or are bothersome): dizziness headache stomach upset trouble sleeping What may interact with this medicine? amiloride control pills chloramphenicol macrolides probenecid sulfonamides tetracyclines What if I miss a dose? If you miss a dose, take it as soon as you can. If it is almost time for your next dose, take only that dose. Do not take double or extra doses. Where should I keep my medicine? Keep out of the reach of children. Store between 68 and 77 degrees F (20 and 25 degrees C). Keep bottle closed tightly. Throw away any unused medicine after the expiration date. What should I tell my health care provider before I take this medicine? They need to know if you have any of these conditions: asthma kidney disease an unusual or allergic reaction to amoxicillin, other penicillins, cephalosporin antibiotics, other medicines, foods, dyes, or preservatives or trying to get breast-feeding What should I watch for while using this medicine? Tell your doctor or health child care leader if your symptoms do not improve in 2 or 3 days. Take all of the doses of your medicine as directed. Do not skip doses or stop your medicine early. If you are diabetic, you may get a false positive result for sugar in your urine with certain brands of urine tests. Check with your doctor. Do not treat diarrhea with orop-mqp-jfhgfoy products. Contact your doctor if you have diarrhea that lasts more than 2 days or if the diarrhea is severe and watery. Ibuprofen Oral tablet What is this medicine? IBUPROFEN (eye BYOO proe fen) is a non-steroidal anti-inflammatory drug (NSAID). It is used for dental pain, fever, headaches or migraines, osteoarthritis, rheumatoid arthritis, or painful monthly periods. It can also relieve minor aches and pains caused by a cold, flu, or sore throat. How should I use this medicine? Take this medicine by mouth with a glass of water. Follow the directions on the prescription label. Take this medicine with food if your stomach gets upset. Try to not lie down for at least 10 minutes after you take the medicine. Take your medicine at regular intervals. Do not take your medicine more often than directed. A special MedGuide will be given to you by the pharmacist with each prescription and refill. Be sure to read this information carefully each time. Talk to your laborer shaft sinking regarding the use of this medicine in children. Special care may be needed. What side effects may I notice from receiving this medicine? Side effects that you should report to your doctor or health child care leader as soon as possible: allergic reactions like skin rash, itching or hives, swelling of the face, lips, or tongue black or bloody stools, blood in the urine or in vomit breathing problems changes in vision chest pain general ill feeling or flu-like symptoms nausea or vomiting redness, blistering, peeling or loosening of the skin, including inside the mouth slurred speech or weakness on one side of the body stomach pain unexplained weight gain or swelling unusually weak or tired yellowing of eyes or skin Side effects that usually do not require medical attention (report to your doctor or health child care leader if they continue or are bothersome): constipation or diarrhea dizziness gas or heartburn stomach upset What may interact with this medicine? Do not take this medicine with any of the following medications: cidofovir ketorolac methotrexate pemetrexed This medicine may also interact with the following medications: alcohol aspirin diuretics lithium other drugs for inflammation like prednisone warfarin What if I miss a dose? If you miss a dose, take it as soon as you can. If it is almost time for your next dose, take only that dose. Do not take double or extra doses. Where should I keep my medicine? Keep out of the reach of children. Store at room temperature between 15 and 30 degrees C (59 and 86 degrees F). Keep container tightly closed. Throw away any unused medicine after the expiration date. What should I tell my health care provider before I take this medicine? They need to know if you have any of these conditions: asthma cigarette smoker drink more than 3 alcohol containing drinks a day heart disease or circulation problems such as heart failure or leg edema (fluid retention) high blood pressure kidney disease liver disease stomach bleeding or ulcers an unusual or allergic reaction to ibuprofen, aspirin, other NSAIDS, other medicines, foods, dyes, or preservatives or trying to get breast-feeding What should I watch for while using this medicine? Tell your doctor or healthcare professional if your symptoms do not start to get better or if they get worse. This medicine does not prevent heart attack or stroke. In fact, this medicine may increase the chance of a heart attack or stroke. The chance may increase with longer use of this medicine and in people who have heart disease. If you take aspirin to prevent heart attack or stroke, talk with your doctor or health child care leader. Do not take other medicines that contain aspirin, ibuprofen, or naproxen with this medicine. Side effects such as stomach upset, nausea, or ulcers may be more likely to occur. Many medicines available without a prescription should not be taken with this medicine. This medicine can cause ulcers and bleeding in the stomach and intestines at any time during treatment. Ulcers and bleeding can happen without warning symptoms and can cause . To reduce your risk, do not smoke cigarettes or drink alcohol while you are taking this medicine. You may get drowsy or dizzy. Do not drive, use machinery, or do anything that needs mental alertness until you know how this medicine affects you. Do not stand or sit up quickly, especially if you are an older patient. This reduces the risk of dizzy or fainting spells. This medicine can cause you to bleed more easily. Try to avoid damage to your teeth and gums when you brush or floss your teeth. You have been given the following additional information: Tooth Abscess Amoxicillin Trihydrate Oral tablet Ibuprofen Oral tablet (Electronically signed by Heidi Jones P.A.-C 02/25/2017 21:27)
--- NOTE | 2017-02-25 21:27 | ED MED RECONCILIATION SUMMARY ---
Patient: SAMANTHA NAYLOR Medication Reconciliation Report [facility] VisitID: [id number] [address] [place] [address] 31y, M Registration Date/Time: 02/25/2017 Weight: 86.1 kg Height/Length: 74 in. BMI: 24.4 ALLERGIES: No Known Drug Allergy The patient's Home Medications are listed below: NONE. The source(s) of the original Home Medication information: patient The following Medications were given to the patient in the Emergency Department: Hydrocodone-APAP [PO] PO 1 tab, administered: 02/25/2017 7:13:00 PM Amoxicillin [PO] PO 500 mg, administered: 02/25/2017 7:13:00 PM The following Medications were prescribed to the patient: Amoxicillin 500 mg tablets: take 1 orally every 8 hours for 10 days. No refills. -- Heidi Jones, P.A.-C Ibuprofen 800 mg tablets: take 1 tablet orally every 8 hours for 5 days, as needed for pain. Dispense fifteen (15). No refill. -- Heidi Jones, P.A.-C
--- NOTE | 2017-02-25 21:27 | ED MED RECONCILIATION SUMMARY ---
Patient: SAMNATHA NAYLOR Medication Reconciliation Report [facility] VisitID: [id number] [address] [place] [address] 31y, M Registration Date/Time: 02/25/2017 Weight: 86.1 kg Height/Length: 74 in. BMI: 24.4 ALLERGIES: No Known Drug Allergy The patient's Home Medications are listed below: NONE. The source(s) of the original Home Medication information: patient The following Medications were given to the patient in the Emergency Department: Hydrocodone-APAP [PO] PO 1 tab, administered: 02/25/2017 7:13:00 PM Amoxicillin [PO] PO 500 mg, administered: 02/25/2017 7:13:00 PM The following Medications were prescribed to the patient: Amoxicillin 500 mg tablets: take 1 orally every 8 hours for 10 days. No refills. -- Heidi Jones, P.A.-C Ibuprofen 800 mg tablets: take 1 tablet orally every 8 hours for 5 days, as needed for pain. Dispense fifteen (15). No refill. -- Heidi Jones, P.A.-C
--- NOTE | 2017-02-25 21:27 | ED DISCHARGE INSTRUCTIONS ---
Patient: SAMANTHA NAYLOR General Instructions [facility] VisitID: [id number] [place] [address] 31y, M Registration Date/Time: 02/25/2017 Dental abscess. INSTRUCTIONS Drink plenty of fluids. Prescription Medications: Amoxicillin 500 mg tablets: take 1 orally every 8 hours for 10 days. No refills. Ibuprofen 800 mg tablets: take 1 tablet orally every 8 hours for 5 days, as needed for pain. Dispense fifteen (15). No refill. Follow-up: Follow up with a dentist. Understanding of the discharge instructions verbalized. ADDITIONAL INFORMATION Dental Abscess A dental abscess is an infection of the tooth socket. It often starts with a crack or cavity in the tooth. A pocket of pus forms between the tooth and the bone. The infection causes pain and swelling of the gum, cheek or jaw. The pain is often made worse by drinking hot or cold fluids, or biting on hard foods. Pain may be felt in the facial sinus or in the ear. A severe infection can interfere with swallowing and breathing. In the emergency department or clinic, you will be started on an antibiotic. However, final treatment requires drainage of the pus. This can be done by removing the tooth or performing a root canal. A root canal is done by an oral surgeon and involves drilling an opening in the tooth to drain the pus. After the infection has healed, a crown is placed over the tooth. Home care The following guidelines will help you care for your abscess at home: Avoid hot and cold foods and liquids since your tooth may be sensitive to temperature changes. If your tooth is chipped or cracked, or if there is a large open cavity, applyoil of cloves(available rwul-hef-nmnkspe in drug stores) directly to the tooth to reduce pain. Some pharmacies carry an oyhh-fsy-pwfmxlt "toothache kit". This contains oil of cloves and a paste, which can be applied over the exposed tooth to decrease sensitivity. Apply an ice pack (ice cubes in a plastic bag, wrapped in a towel) over the injured area for 20 minutes every 12 hours the first day for pain relief. Continue this 34 times a day until the pain and swelling goes away. You may use acetaminophen or ibuprofen to control pain, unless another medicine was prescribed. If you have chronic liver or kidney disease or ever had a stomach ulcer or GI bleeding, talk with your doctor before using these medicines. An antibiotic will be prescribed. Take it as directed until completed, even if you are feeling better sooner. Follow-up care Follow up as directed with a dentist or oral surgeon. Even though your pain may improve with the treatment given today, only a dentist or oral surgeon can provide full treatment for this problem. When to seek medical care Get prompt medical attention or contact your doctor if any of the following occur: Your face or eyelid becomes swollen or red Pain worsens or spreads to the neck Fever over 100.4F (38.0C) Unusual drowsiness; headache or stiff neck; weakness, or fainting Pus drains from the gum or tooth Difficulty talking, swallowing or breathing Unable to open your mouth wide Amoxicillin Trihydrate Oral tablet What is this medicine? AMOXICILLIN (a mox i LILY in) is a penicillin antibiotic. It is used to treat certain kinds of bacterial infections. It will not work for colds, flu, or other viral infections. How should I use this medicine? Take this medicine by mouth with a glass of water. Follow the directions on your prescription label. You may take this medicine with food or on an empty stomach. Take your medicine at regular intervals. Do not take your medicine more often than directed. Take all of your medicine as directed even if you think your are better. Do not skip doses or stop your medicine early. Talk to your tester food products regarding the use of this medicine in children. While this drug may be prescribed for selected conditions, precautions do apply. What side effects may I notice from receiving this medicine? Side effects that you should report to your doctor or health occasional caregiver as soon as possible: allergic reactions like skin rash, itching or hives, swelling of the face, lips, or tongue breathing problems dark urine redness, blistering, peeling or loosening of the skin, including inside the mouth seizures severe or watery diarrhea trouble passing urine or change in the amount of urine unusual bleeding or bruising unusually weak or tired yellowing of the eyes or skin Side effects that usually do not require medical attention (report to your doctor or health occasional caregiver if they continue or are bothersome): dizziness headache stomach upset trouble sleeping What may interact with this medicine? amiloride control pills chloramphenicol macrolides probenecid sulfonamides tetracyclines What if I miss a dose? If you miss a dose, take it as soon as you can. If it is almost time for your next dose, take only that dose. Do not take double or extra doses. Where should I keep my medicine? Keep out of the reach of children. Store between 68 and 77 degrees F (20 and 25 degrees C). Keep bottle closed tightly. Throw away any unused medicine after the expiration date. What should I tell my health care provider before I take this medicine? They need to know if you have any of these conditions: asthma kidney disease an unusual or allergic reaction to amoxicillin, other penicillins, cephalosporin antibiotics, other medicines, foods, dyes, or preservatives or trying to get breast-feeding What should I watch for while using this medicine? Tell your doctor or health occasional caregiver if your symptoms do not improve in 2 or 3 days. Take all of the doses of your medicine as directed. Do not skip doses or stop your medicine early. If you are diabetic, you may get a false positive result for sugar in your urine with certain brands of urine tests. Check with your doctor. Do not treat diarrhea with vhcu-uzd-pgguqrt products. Contact your doctor if you have diarrhea that lasts more than 2 days or if the diarrhea is severe and watery. Ibuprofen Oral tablet What is this medicine? IBUPROFEN (eye BYOO proe fen) is a non-steroidal anti-inflammatory drug (NSAID). It is used for dental pain, fever, headaches or migraines, osteoarthritis, rheumatoid arthritis, or painful monthly periods. It can also relieve minor aches and pains caused by a cold, flu, or sore throat. How should I use this medicine? Take this medicine by mouth with a glass of water. Follow the directions on the prescription label. Take this medicine with food if your stomach gets upset. Try to not lie down for at least 10 minutes after you take the medicine. Take your medicine at regular intervals. Do not take your medicine more often than directed. A special MedGuide will be given to you by the pharmacist with each prescription and refill. Be sure to read this information carefully each time. Talk to your tester food products regarding the use of this medicine in children. Special care may be needed. What side effects may I notice from receiving this medicine? Side effects that you should report to your doctor or health occasional caregiver as soon as possible: allergic reactions like skin rash, itching or hives, swelling of the face, lips, or tongue black or bloody stools, blood in the urine or in vomit breathing problems changes in vision chest pain general ill feeling or flu-like symptoms nausea or vomiting redness, blistering, peeling or loosening of the skin, including inside the mouth slurred speech or weakness on one side of the body stomach pain unexplained weight gain or swelling unusually weak or tired yellowing of eyes or skin Side effects that usually do not require medical attention (report to your doctor or health occasional caregiver if they continue or are bothersome): constipation or diarrhea dizziness gas or heartburn stomach upset What may interact with this medicine? Do not take this medicine with any of the following medications: cidofovir ketorolac methotrexate pemetrexed This medicine may also interact with the following medications: alcohol aspirin diuretics lithium other drugs for inflammation like prednisone warfarin What if I miss a dose? If you miss a dose, take it as soon as you can. If it is almost time for your next dose, take only that dose. Do not take double or extra doses. Where should I keep my medicine? Keep out of the reach of children. Store at room temperature between 15 and 30 degrees C (59 and 86 degrees F). Keep container tightly closed. Throw away any unused medicine after the expiration date. What should I tell my health care provider before I take this medicine? They need to know if you have any of these conditions: asthma cigarette smoker drink more than 3 alcohol containing drinks a day heart disease or circulation problems such as heart failure or leg edema (fluid retention) high blood pressure kidney disease liver disease stomach bleeding or ulcers an unusual or allergic reaction to ibuprofen, aspirin, other NSAIDS, other medicines, foods, dyes, or preservatives or trying to get breast-feeding What should I watch for while using this medicine? Tell your doctor or healthcare professional if your symptoms do not start to get better or if they get worse. This medicine does not prevent heart attack or stroke. In fact, this medicine may increase the chance of a heart attack or stroke. The chance may increase with longer use of this medicine and in people who have heart disease. If you take aspirin to prevent heart attack or stroke, talk with your doctor or health occasional caregiver. Do not take other medicines that contain aspirin, ibuprofen, or naproxen with this medicine. Side effects such as stomach upset, nausea, or ulcers may be more likely to occur. Many medicines available without a prescription should not be taken with this medicine. This medicine can cause ulcers and bleeding in the stomach and intestines at any time during treatment. Ulcers and bleeding can happen without warning symptoms and can cause . To reduce your risk, do not smoke cigarettes or drink alcohol while you are taking this medicine. You may get drowsy or dizzy. Do not drive, use machinery, or do anything that needs mental alertness until you know how this medicine affects you. Do not stand or sit up quickly, especially if you are an older patient. This reduces the risk of dizzy or fainting spells. This medicine can cause you to bleed more easily. Try to avoid damage to your teeth and gums when you brush or floss your teeth. You have been given the following additional information: Tooth Abscess Amoxicillin Trihydrate Oral tablet Ibuprofen Oral tablet (Electronically signed by Heidi Jones P.A.-C 02/25/2017 21:27)
== END 2017-02-25 19:17 | disposition home or self-care (01) ==
LOC: ED SRH 18:08
DX: K04.7 Periapical abscess without sinus (principal); I10 Essential (primary) hypertension